=== PATIENT | male | born 1995 | race Caucasian/White ===

== ENCOUNTER 2020-06-19 17:18 | Emergency (ER) | payer OTHER ==
[2020-06-19] MEDS ORDERED: TETANUS/DIPHTHERIA/PERTUSSIS 0.5 ML SYRINGE IM ONE (17:35)
[2020-06-19] MEDS ORDERED: LIDOCAINE 1%-EPI 1:100000 20 ML MDV SUBQ STA (17:35)
--- NOTE | 2020-06-19 17:36 | ED Physician Documentation ---
PD HPI LOWER EXT INJURY - Stated complaint Stated Complaint: LT LEG WOUND - Chief complaint Chief Complaint: Wound - History obtained from History obtained from: Patient ([place] to [place] and fell and got impaled on a stick and has a wound to the left lower extremity. Tetanus is not up-to-date.) Review of Systems Constitutional: reports: Reviewed and negative Eyes: reports: Reviewed and negative Ears: reports: Reviewed and negative Nose: reports: Reviewed and negative Throat: reports: Reviewed and negative PD PAST MEDICAL HISTORY - Present Medications Home Medications: Ambulatory Orders Medication Instructions Recorded Confirmed No Known Home Medications 06/19/20 06/19/20 - Allergies Allergies/Adverse Reactions: Allergies Allergy/AdvReac Type Severity Reaction Status Date / Time No Known Drug Allergies Allergy Verified 06/19/20 17:29 PD ED PE NORMAL - Vitals Vital signs reviewed: Yes - General General: Alert and oriented X 3, No acute distress - Extremities Extremities: Other (3 cm laceration on the lateral part of the lower left calf. No distal neurovascular compromise.) - Neuro Neuro: Alert and oriented X 3, Normal speech Results - Vitals Vitals: Vital Signs - 24 hr 06/19/20 17:27 Temperature 36.8 C Heart Rate 117 H Respiratory 17 Rate Blood Pressure 158/102 H O2 Saturation 98 Oxygen O2 Source Room air Procedures - Laceration (location) LLE Length in cm: 3 Wound type: Linear, Into subcut fat Neurovascular status: Sensory intact, Motor intact, Vascular intact Anesthesia: Lidocaine 1% with epi Wound preparation: Irrigated copiously NS, Wound explored. No: FB identified Skin layer closure: Nylon, Interrupted, Size #-0 - enter number (3-0), Sutures - enter # (5) Other: Patient tolerated well, No complications, Neurovascular intact, Tetanus booster given Departure - Departure Disposition: 01 Home, Self Care Clinical Impression: Laceration Condition: Good Record reviewed to determine appropriate education?: Yes Instructions: ED Laceration Ext Sutr Stap Tape Comments: Come back for any signs of infection which would include: Redness, swelling, drainage, increased pain, or fevers. You can wash it soap and water. Keep it covered and moist with bacitracin ointment which is available over the counter; avoid neosporin. Follow-up with your physician in about 14 days for suture removal.
[2020-06-19 18:15] VITALS: BP 136/84
== END 2020-06-19 18:15 | disposition home or self-care (01) ==
LOC: ED 17:18
DX: S81.812A Laceration without foreign body, left lower leg, initial encounter (principal); W45.8XXA Other foreign body or object entering through skin, initial encounter; W22.8XXA Striking against or struck by other objects, initial encounter; Y93.02 Activity, running; Y92.821 Forest as the place of occurrence of the external cause
CPT/HCPCS: 12002; 90471; 99281; 99282

== ENCOUNTER 2021-01-14 08:00 | Outpatient (CLI) | payer MEDICAID, OTHER | END 2021-01-14 23:59 | disposition home or self-care (01) | LOC: LAB.N 08:00 | PROVIDERS: ATTEND Family Medicine | DX: R06.02 Shortness of breath (principal); Z20.822 Contact with and (suspected) exposure to COVID-19 ==

== ENCOUNTER 2021-02-12 09:50 | Outpatient (CLI) | payer MEDICAID ==
--- NOTE | 2021-02-17 00:21 | XRAY Report ---
PROCEDURE: Chest 2 View X-Ray INDICATIONS: CHEST PAIN TECHNIQUE: 2 view(s) of the chest. Images became available for interpretation on 02/16/2021. COMPARISON: None. FINDINGS: Surgical changes and devices: None. Lungs and pleura: No pleural effusions or pneumothorax. Lungs are clear. Mediastinum: Mediastinal contours are normal. Heart size is normal. Bones and chest wall: No suspicious bony abnormalities. Soft tissues appear unremarkable. IMPRESSION: No acute pulmonary process. Reviewed by: Gracie Stephens MD on 02/17/2021 12:20 AM PDT Approved by: Gracie Stephens MD on 02/17/2021 12:20 AM PDT Station ID: [id number]
== END 2021-02-12 23:59 | disposition home or self-care (01) ==
LOC: DI.N 09:50
PROVIDERS: ATTEND Nurse Practitioner
DX: R07.9 Chest pain, unspecified (principal)

== ENCOUNTER 2021-02-12 10:16 | Outpatient (CLI) | payer MEDICAID ==
[2021-02-12 14:17] LABS: BASOPHILS % (AUTO) 0.6 %; EOSINOPHILS # (AUTO) 0.1 10^3/uL (0.0-0.7); HCT - HEMATOCRIT 43.2 % (42.0-52.0); HGB - HEMOGLOBIN 14.3 g/dL (14.0-18.0); LYMPHOCYTES # (AUTO) 1.3 10^3/uL (1.5-3.5); LYMPHOCYTES % (AUTO) 25.3 %; MEAN CORPUSCULAR HEMOGLOBIN 29.2 pg (27.0-31.0); MEAN CORPUSCULAR HGB CONC 33.1 g/dL (32.0-36.0); MEAN CORPUSCULAR VOLUME 88.2 fL (80.0-94.0); MEAN PLATELET VOLUME 9.9 fL (7.4-11.4); MONOCYTES # (AUTO) 0.5 10^3/uL (0.0-1.0); MONOCYTES % (AUTO) 10.4 %; NEUTROPHILS # (AUTO) 3.3 10^3/uL (1.5-6.6); NEUTROPHILS % (AUTO) 62.5 %; PLT - PLATELET COUNT 278 10^3/uL (130-450); WHITE BLOOD COUNT 5.2 x10^3/uL (4.8-10.8)
[2021-02-12 14:18] LABS: BILIRUBIN,URINE NEGATIVE (NEGATIVE); GLUCOSE, URINE (UA) NEGATIVE (NEGATIVE); KETONES,URINE (UA) NEGATIVE (NEGATIVE); LEUKOCYTE ESTERASE, URINE NEGATIVE (NEGATIVE); NITRITE,URINE NEGATIVE (NEGATIVE); OCCULT BLOOD,URINE NEGATIVE (NEGATIVE); PROTEIN,URINE NEGATIVE (NEGATIVE); UROBILINOGEN,URINE 0.2 (NORMAL) E.U./dL (NORMAL)
[2021-02-12 14:21] LABS: CLARITY,URINE CLEAR (CLEAR)
[2021-02-12 14:29] LABS: ALBUMIN 4.8 g/dL (3.2-5.5); ALBUMIN/GLOBULIN RATIO 1.8 (1.0-2.2); CALCIUM 9.2 mg/dL (8.5-10.3); CREATININE 0.8 mg/dL (0.6-1.2); POTASSIUM 4.2 mmol/L (3.5-5.0); TOTAL PROTEIN 7.5 g/dL (6.7-8.2)
[2021-02-12 14:33] LABS: BACTERIA,URINE None Seen /HPF (None Seen); RBC,URINE 0-5 /HPF (0-5); SQUAMOUS EPITHELIAL CELL,UR NONE SEEN (<= Few); WBC,URINE 0-3 /HPF (0-3)
== END 2021-02-12 23:59 | disposition home or self-care (01) ==
LOC: LAB.N 10:16
PROVIDERS: ATTEND Nurse Practitioner
DX: R10.9 Unspecified abdominal pain (principal)
CPT/HCPCS: 36415; 80053; 81001; 81003; 82150; 83690; 85025; 87086